=== PATIENT | male | born 1985 | race Caucasian/White ===

== ENCOUNTER 2016-09-30 14:02 | Emergency (ER) | payer OTHER ==
[~2016-09-30] VITALS: Ht 177.8 cm; Wt 70.5 kg
[2016-09-30 14:26] VITALS: BP 143/79; PULSE 75; RESP 16; O2SAT 98
--- NOTE | 2016-09-30 15:06 | ED.REPORT ---
HPI-Dental/Mouth Prob Date of Service Sep 30, 2016 ED Provider: Mary Jane Gonzales History of Present Illness: broken tooth and broken wisdom tooth, pain for a month. no dental insurance. teeth are located on the lower right. No primary care per his report. Has to go to work later today. Nursing Notes Stated Complaint: DENTAL PAIN Chief Complaint: Dental Nursing Notes Reviewed: Yes Allergies: Coded Allergies: No Known Allergies (Verified , 07/24/06) General Time Seen by MD: 14:47 Chief Complaint Tooth pain Hx Obtained From: Patient Onset Occurred: More than a week ago... (1 month) Symptom Duration: Since onset Past Medical History Past Medical History Reports: Diabetes mellitus (type 1 states buys it over the counter at [employer] for a long time), Denies: Asthma Past Surgical History denies Smoking History Current Every Day Smoker (1/2 pack a day for 13 years) Social History Alcohol Use: 1-3 per week Drug Use: Denies drug use (not for 7 years herion) Occupation lives by self, works at [employer] Review of Systems Basic Review of Systems Eyes: Vision NL, No discharge Cardiovascular: No chest pain, No dyspnea on exertion, No orthopnea, No parox noct dyspnea, No palpitations : No dysuria, No frequency Musculoskeletal: No extremity swelling, No extremity pain, Full range of motion , Joints NL Hematologic: No bleeding, No bruising Endocrine: No cold intolerance, No heat intolerance, No weight gain, No weight loss Skin: No bruising, No rash, No itch Allergy / Immune: No allergy Neurologic: NL mental status, No weakness, No numbness Psychiatric: Normal thought content Physical Exam Initial Vital Signs Vital Signs (First) Date Time Temp Pulse Resp B/P Pulse Ox O2 Delivery O2 Flow Rate FiO2 09/30/16 14:26 36.1 75 16 143/79 98 Room Air Initial VS: Reviewed, Vital signs normal General/Constitutional: Well-developed, Well-nourished Head / Eyes: Atraumatic, Normocephalic, PERRL Respiratory: Breath sounds normal, Clear to auscultation, No respiratory distress Cardiovascular: Regular rate & rhythm, Heart sounds normal, Intact distal pulses Abdomen / GI: Soft, Non-tender, No guarding, No rebound, No distention Back: No CVA tenderness Lymphatic: No lymphadenopathy Extremities: Vascular intact, Neuro intact, No swelling, No tenderness Skin: Warm, Dry, No cyanosis Neurologic: Alert, Oriented, Nonfocal Psychiatric: Mood/affect normal, Behavior normal, Normal thought content teeth in question show extensive decay. No gum swelling noted. No trismus. No erthyma on cheek over tooth. Neck: Atraumatic, Supple, No meningismus General/Constitutional: Awake, Alert, No acute distress Head / Eyes: Atraumatic, Normocephalic, PERRL Respiratory / Chest: Atraumatic, Breath sounds NL, Breath sounds = bilat, No respiratory distress Cardiovascular: Heart rate NL, Regular rhythm, Heart sounds NL, No gallop Re-Eval/Medical Decision Med Decision/Clinical Course 31 year male presents for evualation of dental pain of a month's duration. Patient states just recently received insurance but have not seen any dentist as of yet. No sign of cellulitis or TMJ. Discharge & Departure Primary Impression: Toothache Disposition: Home Patient Instructions: Dental Caries (ED) Additional Instructions: You have extensive decay. Start amoxicillin 500 mg 3 times a day for 10 days. Continue with ketorolac 10 mg up to 4 times a day for 5 days. Stop ibuprofen while taking this medication. A small amount of hydrocodone that you can take at night is also provided. #6. Please call a dentist for dental care. The [facility] in [place] is open Wednesday. Sometimes they can see walkins. Please call them. Referrals: [facility] EDSupervising Provider for APC: Israel Butts MD copies to: [facility] Mary Jane Gonzales Sep 30, 2016 15:06
[2016-09-30] MEDS ORDERED: Ketorolac 30 mg/mL 2 mL Inj IM ONE (15:15)
[2016-09-30 15:59] VITALS: BP 130/78; PULSE 71; O2SAT 97
== END 2016-09-30 15:57 | disposition home or self-care (01) ==
LOC: SED 14:02
DX: K02.9 Dental caries, unspecified (principal); E10.9 Type 1 diabetes mellitus without complications; F17.200 Nicotine dependence, unspecified, uncomplicated; Z79.4 Long term (current) use of insulin
CPT/HCPCS: 96372; 99283; J1885